=== PATIENT | female | born 1990 | race Caucasian/White ===

== ENCOUNTER 2020-04-09 13:15 | Inpatient (IN) | payer OTHER ==
[2020-04-09] MEDS: DEXTROSE 5%-LACTATED RINGERS 1,000 ML IV SCH (15:46)
[2020-04-09] MEDS ORDERED: INDOMETHACIN 25 MG CAPSULE PO SCH (16:00)
[2020-04-09 18:32] VITALS: BMI 21.8
[2020-04-09 21:02] LABS: BASO % 0.2 % (0-2.0); EOS % 1.8 % (0-4.5); HEMATOCRIT 32.2 % (32.4-45.2); HEMOGLOBIN 10.9 GM/dL (10.7-15.3); LYMPH % 26.2 % (8-40); MCH 28.9 pg (25.7-33.7); MCHC 33.9 g/dl (32.0-36.0); MEAN CELL VOLUME 85.3 fl (80-96); MEAN PLT VOLUME 8.3 fl (7.5-11.1); NEUT % 65.8 % (42.8-82.8); PLATELET COUNT 198 K/MM3 (134-434); RBC 3.78 M/mm3 (3.60-5.2); RDW 14.3 % (11.6-15.6); WHITE BLOOD COUNT 8.2 K/mm3 (4.0-10.0)
[2020-04-09 21:11] LABS: INR 1.05 (0.83-1.09); PROTHROMBIN TIME (PATIENT) 12.7 SEC (9.7-13.0)
[2020-04-09 21:13] LABS: ACTIVATED PTT 27.7 SECONDS (25.2-36.5)
[2020-04-09 21:24] LABS: POTASSIUM 3.6 mmol/L (3.5-5.1)
[2020-04-09 21:26] LABS: ALBUMIN 3.1 g/dl (3.4-5.0); BLOOD UREA NITROGEN 6.5 mg/dL (7-18); CALCIUM 8.3 mg/dL (8.5-10.1)
[2020-04-09 21:30] LABS: CREATININE 0.6 mg/dL (0.55-1.3)
[2020-04-09 21:31] LABS: BILIRUBIN,TOTAL 0.2 mg/dL (0.2-1); TOT PROT 6.3 g/dl (6.4-8.2)
[2020-04-09] MEDS: INDOMETHACIN 25 MG CAPSULE PO SCH (23:05)
[2020-04-10] MEDS: INDOMETHACIN 25 MG CAPSULE PO SCH ×4 (05:12→23:01)
[2020-04-10 10:18] LABS: BASO % 0.3 % (0-2.0); EOS % 2.4 % (0-4.5); HEMATOCRIT 29.9 % (32.4-45.2); HEMOGLOBIN 10.3 GM/dL (10.7-15.3); LYMPH % 24.2 % (8-40); MCH 29.4 pg (25.7-33.7); MCHC 34.6 g/dl (32.0-36.0); MEAN CELL VOLUME 85.2 fl (80-96); MONO % 5.5 % (3.8-10.2); NEUT % 67.6 % (42.8-82.8); PLATELET COUNT 183 K/MM3 (134-434); RBC 3.51 M/mm3 (3.60-5.2); RDW 14.6 % (11.6-15.6); WHITE BLOOD COUNT 7.3 K/mm3 (4.0-10.0)
[2020-04-10] MEDS: PRENATAL VITAMINS W/ FOLIC ACID TABLET (FP) PO SCH (10:24)
[2020-04-10] MEDS: FERROUS SO4 325 MG TABLET (FP) PO SCH ×2 (10:25→16:49)
[2020-04-10] MEDS: DEXTROSE 5%-LACTATED RINGERS 1,000 ML IV SCH (11:45)
[2020-04-10 17:53] LABS: EPI CELLS 2 /uL (0-25.1); HYALINE CASTS 0 /uL (0-3.1); URINE APPEARANCE CLEAR; URINE BACTERIA 91 /uL (0-1359); URINE BILIRUBIN NEGATIVE (NEGATIVE); URINE COLOR YELLOW; URINE GLUCOSE (UA) NEGATIVE (NEGATIVE); URINE KETONE NEGATIVE (NEGATIVE); URINE LEUK ESTERASE NEGATIVE (NEGATIVE); URINE NITRITE NEGATIVE (NEGATIVE); URINE PROTEIN NEGATIVE (NEGATIVE); URINE RBC 2 /uL (0-23.9); URINE UROBILINOGEN 0.2 mg/dL (0.2-1.0); URINE WBC 2 /uL (0-25.8)
[2020-04-11] MEDS: INDOMETHACIN 25 MG CAPSULE PO SCH (04:57)
[2020-04-11 09:31] LABS: BASO % 0.5 % (0-2.0); EOS % 2.5 % (0-4.5); HEMATOCRIT 29.5 % (32.4-45.2); HEMOGLOBIN 10.4 GM/dL (10.7-15.3); MCH 29.6 pg (25.7-33.7); MCHC 35.3 g/dl (32.0-36.0); MEAN CELL VOLUME 83.8 fl (80-96); PLATELET COUNT 178 K/MM3 (134-434); RBC 3.52 M/mm3 (3.60-5.2); RDW 14.2 % (11.6-15.6); WHITE BLOOD COUNT 8.1 K/mm3 (4.0-10.0)
[2020-04-11 09:45] LABS: POTASSIUM 3.5 mmol/L (3.5-5.1)
[2020-04-11] MEDS: FERROUS SO4 325 MG TABLET (FP) PO SCH (09:48)
[2020-04-11] MEDS: PRENATAL VITAMINS W/ FOLIC ACID TABLET (FP) PO SCH (09:48)
[2020-04-11 10:11] VITALS: BP 106/62; PULSE 86; TEMP 97.7
[2020-04-11 10:29] LABS: CALCIUM 8.2 mg/dL (8.5-10.1)
[2020-04-11 10:30] LABS: ALBUMIN 2.8 g/dl (3.4-5.0); BLOOD UREA NITROGEN 5.4 mg/dL (7-18)
[2020-04-11 10:33] LABS: CREATININE 0.4 mg/dL (0.55-1.3)
[2020-04-11 10:34] LABS: BILIRUBIN,TOTAL 0.6 mg/dL (0.2-1)
[2020-04-11 10:35] LABS: TOT PROT 5.8 g/dl (6.4-8.2)
== END 2020-04-11 10:30 | disposition home or self-care (01) | DRG 566 ==
LOC: JDEL 13:15 → JLDR 18:12 → J3W 23:10
PROVIDERS: ADMIT Obstetrics & Gynecology; ATTEND Obstetrics & Gynecology
DX: O44.52 Low lying placenta with hemorrhage, second trimester (principal); Z3A.22 22 weeks gestation of pregnancy
CPT/HCPCS: 36415; 59025; 80053; 81003; 85025; 85610; 85730; 86850; 86900; 86901; 87086; C9803; U0003

== ENCOUNTER 2022-08-20 18:59 | Emergency (ER) | payer OTHER ==
[2022-08-20 19:05] VITALS: TEMP 98.7; BMI 21.6
[2022-08-20 20:47] LABS: BASO % 0.5 % (0-2.0); HEMATOCRIT 39.5 % (32.4-45.2); HEMOGLOBIN 13.4 GM/dL (10.7-15.3); LYMPH % 38.8 % (8-40); MCH 28.3 pg (25.7-33.7); MCHC 33.8 g/dl (32.0-36.0); MEAN CELL VOLUME 83.7 fl (80-96); MEAN PLT VOLUME 8.7 fl (7.5-11.1); MONO % 6.5 % (3.8-10.2); NEUT % 51.2 % (42.8-82.8); PLATELET COUNT 205 10^3/uL (134-434); RBC 4.73 M/mm3 (3.60-5.2); RDW 13.5 % (11.6-15.6); WHITE BLOOD COUNT 7.7 K/mm3 (4.0-10.0)
[2022-08-20 20:48] LABS: EPI CELLS 13 /uL (0-25.1); HYALINE CASTS 0 /uL (0-3.1); PH,URINE 6.5 (5.0-8.0); URINE APPEARANCE CLEAR; URINE BACTERIA 423 /uL (0-1359); URINE BILIRUBIN NEGATIVE (NEGATIVE); URINE COLOR YELLOW; URINE GLUCOSE (UA) NEGATIVE (NEGATIVE); URINE KETONE NEGATIVE (NEGATIVE); URINE LEUK ESTERASE 2+ (NEGATIVE); URINE NITRITE NEGATIVE (NEGATIVE); URINE PROTEIN NEGATIVE (NEGATIVE); URINE RBC 5 /uL (0-23.9); URINE UROBILINOGEN 0.2 mg/dL (0.2-1.0); URINE WBC 27 /uL (0-25.8)
[2022-08-20 20:57] LABS: INR 1.07 (0.83-1.09); PROTHROMBIN TIME (PATIENT) 12.4 SEC (9.7-13.0)
[2022-08-20 21:06] LABS: POTASSIUM 3.8 mmol/L (3.5-5.1)
[2022-08-20 21:09] LABS: ALBUMIN 3.9 g/dl (3.4-5.0); BLOOD UREA NITROGEN 10.7 mg/dL (7-18); CALCIUM 9.2 mg/dL (8.5-10.1)
[2022-08-20 21:12] LABS: CREATININE 0.6 mg/dL (0.55-1.3)
[2022-08-20 21:14] LABS: BILIRUBIN,TOTAL 0.2 mg/dL (0.2-1); TOT PROT 7.5 g/dl (6.4-8.2)
[2022-08-20] MEDS ORDERED: CEPHALEXIN MONOHYDRATE 500 MG CAPSULE (UD) PO ONE (23:49)
[2022-08-21] MEDS ORDERED: CEPHALEXIN MONOHYDRATE 500 MG CAPSULE (UD) ONE (00:10)
[2022-08-21 00:24] VITALS: BP 106/65; PULSE 69; RESP 20
== END 2022-08-21 00:25 | disposition home or self-care (01) ==
LOC: JER 18:59
DX: O20.9 Hemorrhage in early pregnancy, unspecified (principal); Z3A.08 8 weeks gestation of pregnancy
CPT/HCPCS: 36415; 76801-TC; 80053; 81003; 84702; 85025; 85610; 85730; 86850; 86900; 86901; 87086; 99284-25